=== PATIENT | female | born 1930 | race Two or more races ===

== ENCOUNTER 2016-08-17 18:03 | Emergency (ER) | payer MEDICARE, OTHER ==
[~2016-08-17] VITALS: Ht 160 cm; Wt 59.0 kg
--- NOTE | 2016-08-17 18:15 | NUR ---
bb son: sob for few weeks, getting progressively worse. +chest pain. pt aao x3, right sided weakness, ambulatory with assist. pt placed in gown and monitor. continue to monitor.
[2016-08-17 18:32] LABS: BASOPHILS # (AUTO) 0.2 /CMM (0.0-0.2); EOSINOPHILS # (AUTO) 0.1 /CMM (0.0-0.7); EOSINOPHILS % (AUTO) 2.1 % (0.0-6.0); HEMATOCRIT 40 % (33-45); HEMOGLOBIN 13.7 g/dL (11.5-14.8); LYMPHOCYTES # (AUTO) 1.7 /CMM (0.8-4.8); MEAN CORPUSCULAR HEMOGLOBIN 31 PG (26.0-33.0); MEAN CORPUSCULAR HGB CONC 34 g/dl (31.0-36.0); MEAN CORPUSCULAR VOLUME 92 fL (82-100); MONOCYTES # (AUTO) 0.6 /CMM (0.1-1.30); MONOCYTES % (AUTO) 9.1 % (2.0-12.0); NEUTROPHILS # (AUTO) 3.8 /CMM (1.8-8.9); NEUTROPHILS % (AUTO) 58.8 % (43.0-81.0); PLATELET COUNT (AUTO) 248 /CMM (150-450); RDW COEFFICIENT OF VARIATION 13.1 (11.5-15.0); RED BLOOD CELL COUNT(AUTO) 4.41 MIL/uL (4.0-5.2); WHITE BLOOD COUNT (AUTO) 6.4 K/uL (4.3-11.0)
[2016-08-17 18:43] LABS: CALCIUM, SERUM 9.5 mg/dL (8.5-10.1); CARBON DIOXIDE 26 mmol/L (21-32); CHLORIDE 102 mmol/L (98-107); CREATININE 0.9 mg/dL (0.6-1.3); GLUCOSE 96 mg/dL (74-106); POTASSIUM 3.9 mmol/L (3.5-5.1); SODIUM SERUM 135 mmol/L (136-145); UREA NITROGEN, BLOOD 12 mg/dL (7-18)
[2016-08-17 18:46] LABS: INR 1.11 (0.87-1.13); PROTHROMBIN TIME 11.6 SECS (9.5-12.7)
[2016-08-17 18:51] LABS: TROPONIN I < 0.017 ng/mL (0.00-0.056)
[2016-08-17 18:55] LABS: ALANINE AMINOTRANSFERASE 29 U/L (12-78); ALBUMIN 3.7 g/dL (3.4-5.0); ALKALINE PHOSPHATASE 62 U/L (46-116); ASPARTATE AMINOTRANSFERASE 23 U/L (15-37); B-TYPE NATRIURETIC PEPTIDE 132 PG/ML (0-125); BILIRUBIN,DIRECT 0.1 mg/dL (0.0-0.2); BILIRUBIN,TOTAL 0.2 mg/dL (0.2-1.0); TOTAL PROTEIN, SERUM 6.9 g/dL (6.4-8.2)
--- NOTE | 2016-08-17 19:39 | NUR ---
URINE SAMPLE OBTAINED AND SENT TO LAB
[2016-08-17] MEDS ORDERED: METO-295 PO (20:07)
[2016-08-17] MEDS ORDERED: CHOL20004 PO (20:07)
[2016-08-17] MEDS ORDERED: ASPI-991 PO (20:07)
[2016-08-17] MEDS ORDERED: ALPR0.5T8 PO (20:07)
[2016-08-17] MEDS ORDERED: CLOP75TA2 PO (20:07)
[2016-08-17] MEDS ORDERED: AMLO2.5T PO (20:07)
[2016-08-17] MEDS ORDERED: TRAM50TA2 PO (20:07)
[2016-08-17] MEDS ORDERED: LINA290C PO (20:07)
[2016-08-17] MEDS ORDERED: DOCU-25 PO (20:07)
[2016-08-17] MEDS ORDERED: FAMO20TA8 PO (20:07)
[2016-08-17] MEDS ORDERED: ATOR20TA PO (20:07)
[2016-08-17 20:11] LABS: APPEARANCE,URINE Clear (CLEAR); BILIRUBIN,URINE Negative (NEGATIVE); BLOOD, URINE Negative Ery/uL (NEGATIVE); COLOR,URINE Yellow (YELLOW); KETONES,URINE Negative (NEGATIVE); LEUKOCYTE ESTERASE ,URINE Trace (NEGATIVE); NITRITE, URINE Negative (NEGATIVE); PROTEIN,URINE Negative (NEGATIVE); UGLUCOSE Negative (NEGATIVE); UROBILINOGEN,URINE 0.2 EU/dL (0.2)
[2016-08-17 21:22] LABS: ADD URINE CULTURE NO; BACTERIA,URINE Rare /HPF (None Seen); MUCUS,URINE Few /LPF (None Seen); RBC,URINE 0-2 /HPF (0-2); SQUAMOUS EPITHELIAL CELL,UR Few /HPF (None Seen); URINE AMORPHOUS URATE Few /HPF (None Seen); WBC,URINE 3-4/HPF /HPF (0-3)
--- NOTE | 2016-08-17 21:36 | NUR ---
Patient discharged to home in stable condition. Written and verbal after care instructions given. Patient'S SON verbalizes understanding of instruction. PT LEFT VIA WC. VSS.
--- NOTE | 2016-08-17 21:36 | NUR ---
IV removed. Catheter intact and site benign. Pressure and 4x4 applied to site. No bleeding noted.
[2016-08-17 21:37] VITALS: BP 113/74
== END 2016-08-17 21:38 | disposition home or self-care (01) ==
LOC: ER 18:05 → UNDOADMIN 20:07 → TELE 20:07 → ER 21:38
DX: R06.02 Shortness of breath (principal); R53.1 Weakness; I10 Essential (primary) hypertension; K21.9 Gastro-esophageal reflux disease without esophagitis; F32.9 Major depressive disorder, single episode, unspecified; E78.00 Pure hypercholesterolemia, unspecified; Z86.73 Personal history of transient ischemic attack (TIA), and cerebral infarction without residual deficits; Z90.710 Acquired absence of both cervix and uterus
CPT/HCPCS: 36415; 71010; 80048; 80076; 81001; 83880; 84484; 85025; 85730; 93005; 99285; A4606; 81000-TC; 87081-TC; Z7610